=== PATIENT | female | born 1995 | race Two or more races ===

== ENCOUNTER 2020-02-04 13:15 | Emergency (ER) | payer SELFPAY ==
[~2020-02-04] VITALS: Ht 165.1 cm; Wt 73.0 kg
[2020-02-04 15:35] VITALS: BP 115/78
== END 2020-02-04 15:35 | disposition home or self-care (01) ==
LOC: ER 13:15
DX: B34.9 Viral infection, unspecified (principal); R05 Cough
CPT/HCPCS: 71045; 81025; 99283